=== PATIENT | male | born 1970 | race Caucasian/White ===

== ENCOUNTER 2016-05-12 08:02 | Day surgery (SDC) | payer OTHER ==
[~2016-05-12] VITALS: Ht 177.8 cm; Wt 99.8 kg
[~2016-05-12 08:02] MED LIST: AUGMENTIN875 MG PO; VICODIN 5-3001 EACH PO; ZOCOR20 MG PO
[2016-05-12 08:21] VITALS: BP 126/85
[2016-05-12 08:34] VITALS: BP 126/85
[2016-05-12 09:34] LABS: METH RESISTANT S AUREUS PCR NEGATIVE (NEGATIVE)
[2016-05-12 10:44] LABS: PROBE CHECK PASS; SPECIMEN PROCESSING CONTROL PASS
[2016-05-12] MEDS ORDERED: COLACE100 MG PO (12:18)
[2016-05-12] MEDS ORDERED: PERCOCET 5/31 TABLET PO (12:18)
[2016-05-12 13:53] VITALS: BP 139/97
[2016-05-12 14:39] VITALS: BP 138/78
== END 2016-05-12 14:40 | disposition home or self-care (01) ==
LOC: SDC 08:02
PROVIDERS: Surgery
DX: K43.9 Ventral hernia without obstruction or gangrene (principal); Z86.14 Personal history of Methicillin resistant Staphylococcus aureus infection
CPT/HCPCS: 87641; 93005; C1781; J1100; J1170; J1885; J2250; J2405; J2710; J3010